=== PATIENT | male | born 1985 | race Asian ===

== ENCOUNTER 2017-05-22 00:07 | Emergency (ER) | payer SELFPAY ==
[~2017-05-22] VITALS: Ht 180.3 cm; Wt 78.5 kg
--- NOTE | 2017-05-22 00:25 | NUR ---
PT RECEIVED FROM HOME BIB SELF C/O RIGHT FOOT ABSCESS STATING "I HAVE ATHELETES FOOT BUT THIS STARTED TODAY WITH DISCHARGE COMING FROM THE AREA. NO SOB. PAIN STATING 10/15. VSS NAD A/OX4
--- NOTE | 2017-05-22 00:41 | NUR ---
PT REFUSES ACCUCHECK
[2017-05-22] MEDS ORDERED: SULFAMETH/TRIMETH 800/160 MG 1 UDTAB TABLET PO ONE ×3 (01:02→01:30)
[2017-05-22 01:16] VITALS: BP 133/82
== END 2017-05-22 01:16 | disposition home or self-care (01) ==
LOC: ER 00:07
DX: L02.611 Cutaneous abscess of right foot (principal)
CPT/HCPCS: 99283; A4606; Z7610